=== PATIENT | female | born 1955 | race Caucasian/White ===

== ENCOUNTER → 2023-10-02 | Outpatient (CLI) | payer BC ==
[~2023-10-02] MED LIST: CALCA500CH PO; CELE200 PO; CYCL10 PO; Calcium 500 MG1 EACH PO; Daily Multiple1 EACH PO; Doxycycline Hy100 MG PO; Doxycycline Hyc50 MG PO; ERGO400 PO; EYE VITAMIN-MI1 EACH PO; FISH OIL 1,0001 EAC1 PO; HYDSUL200 PO; METR59TL TOP; Metrogel 1% 6060 GM TOP; Multivitamin1 EAC1 PO; PROLIA60 MG/1 ML SC; Vitamin D2000 UNIT PO
[2023-10-02 19:17] LABS: Albumin, Blood 3.4 g/dL (3.4-5.0); Anion Gap 7 mmol/L (3-11); Blood Urea Nitrogen 27 mg/dL (8-24); Bun/Creatinine Ratio 32.4 (12.0-20.0); CO2, Blood 26 mmol/L (21-32); Calcium, Blood 9.5 mg/dL (8.5-10.1); Chloride, Blood 109 mmol/L (98-108); Creatinine, Blood 0.83 mg/dL (0.40-1.00); Glomerular Filtration Rate 76 (60-); Glucose, Blood 95 mg/dL (70-99); Potassium, Blood 3.9 mmol/L (3.5-5.5); Sodium, Blood 138 mmol/L (136-145)
== END ==
LOC: LAB 11:00 → LAB SHORT 11:00
PROVIDERS: Internal Medicine Hematology & Oncology
DX: M81.0 Age-related osteoporosis without current pathological fracture (principal); E53.8 Deficiency of other specified B group vitamins
CPT/HCPCS: 80069; 82607